=== PATIENT | female | born 1960 | race Caucasian/White ===

== ENCOUNTER → 2019-01-14 | Outpatient (CLI) | payer OTHER ==
[~2019-01-14] MED LIST: FAMO20 PO; LEVSOD75 PO; LORA.5 PO; METO50 PO; Prinivil10 MG PO; ROXICODONE5 MG PO
[2019-01-15 15:06] LABS: HPV 16 Negative (Negative); HPV 18 Negative (Negative); HPV OTHER HR TYPES Negative (Negative)
== END | disposition home or self-care (01) ==
LOC: LAB 11:29 → LAB SHORT 11:29
PROVIDERS: Nurse Practitioner Family
DX: Z01.411 Encounter for gynecological examination (general) (routine) with abnormal findings (principal)
CPT/HCPCS: 87624; G0145

== ENCOUNTER 2019-05-07 07:30 | Day surgery (SDC) | payer OTHER | END 2019-05-07 22:49 | disposition home or self-care (01) | LOC: WOUND 07:30 | DX: L97.822 Non-pressure chronic ulcer of other part of left lower leg with fat layer exposed (principal); I73.9 Peripheral vascular disease, unspecified; I87.2 Venous insufficiency (chronic) (peripheral); I10 Essential (primary) hypertension; Z87.891 Personal history of nicotine dependence | CPT/HCPCS: G0463 ==

== ENCOUNTER 2019-05-14 13:07 | Day surgery (SDC) | payer OTHER | END 2019-05-14 22:39 | disposition home or self-care (01) | LOC: WOUND 13:07 | DX: L97.822 Non-pressure chronic ulcer of other part of left lower leg with fat layer exposed (principal); I87.2 Venous insufficiency (chronic) (peripheral); I10 Essential (primary) hypertension; I73.9 Peripheral vascular disease, unspecified | CPT/HCPCS: 87071; 87075; 87205 ==

== ENCOUNTER 2019-05-21 00:23 | Day surgery (SDC) | payer OTHER | END 2019-05-21 23:03 | disposition home or self-care (01) | LOC: WOUND 00:23 | DX: L97.825 Non-pressure chronic ulcer of other part of left lower leg with muscle involvement without evidence of necrosis (principal); I87.2 Venous insufficiency (chronic) (peripheral); L98.9 Disorder of the skin and subcutaneous tissue, unspecified; R23.4 Changes in skin texture; I10 Essential (primary) hypertension | CPT/HCPCS: 11104; 11105; 87070; 87071; 87075; 87205; 88305; 88312 ==

== ENCOUNTER 2019-05-28 00:46 | Day surgery (SDC) | payer OTHER | END 2019-05-28 22:53 | disposition home or self-care (01) | LOC: WOUND 00:46 | DX: L97.828 Non-pressure chronic ulcer of other part of left lower leg with other specified severity (principal); I87.2 Venous insufficiency (chronic) (peripheral); R23.4 Changes in skin texture; L98.9 Disorder of the skin and subcutaneous tissue, unspecified; I10 Essential (primary) hypertension | CPT/HCPCS: G0463 ==

== ENCOUNTER 2019-06-04 12:57 | Day surgery (SDC) | payer OTHER | END 2019-06-04 22:39 | disposition home or self-care (01) | LOC: WOUND 12:57 | DX: L97.822 Non-pressure chronic ulcer of other part of left lower leg with fat layer exposed (principal); I87.2 Venous insufficiency (chronic) (peripheral); L98.9 Disorder of the skin and subcutaneous tissue, unspecified; I10 Essential (primary) hypertension ==

== ENCOUNTER 2019-06-11 00:26 | Day surgery (SDC) | payer OTHER | END 2019-06-11 23:01 | disposition home or self-care (01) | LOC: WOUND 00:26 | DX: L97.822 Non-pressure chronic ulcer of other part of left lower leg with fat layer exposed (principal); I87.2 Venous insufficiency (chronic) (peripheral); R23.4 Changes in skin texture; L98.9 Disorder of the skin and subcutaneous tissue, unspecified; I10 Essential (primary) hypertension ==

== ENCOUNTER 2019-06-19 00:07 | Day surgery (SDC) | payer OTHER | END 2019-06-19 23:13 | disposition home or self-care (01) | LOC: WOUND 00:07 | DX: L97.822 Non-pressure chronic ulcer of other part of left lower leg with fat layer exposed (principal); I87.2 Venous insufficiency (chronic) (peripheral); L97.825 Non-pressure chronic ulcer of other part of left lower leg with muscle involvement without evidence of necrosis ==

== ENCOUNTER 2019-06-25 13:46 | Day surgery (SDC) | payer OTHER | END 2019-06-25 23:00 | disposition home or self-care (01) | LOC: WOUND 13:46 | DX: L97.822 Non-pressure chronic ulcer of other part of left lower leg with fat layer exposed (principal); I87.2 Venous insufficiency (chronic) (peripheral); R23.4 Changes in skin texture; L98.9 Disorder of the skin and subcutaneous tissue, unspecified; I10 Essential (primary) hypertension ==

== ENCOUNTER 2019-07-02 00:14 | Day surgery (SDC) | payer OTHER | END 2019-07-02 22:46 | disposition home or self-care (01) | LOC: WOUND 00:14 | DX: I96 Gangrene, not elsewhere classified (principal); L97.822 Non-pressure chronic ulcer of other part of left lower leg with fat layer exposed; I87.2 Venous insufficiency (chronic) (peripheral); E03.9 Hypothyroidism, unspecified; E78.5 Hyperlipidemia, unspecified; D64.9 Anemia, unspecified; K76.0 Fatty (change of) liver, not elsewhere classified; I10 Essential (primary) hypertension; F41.9 Anxiety disorder, unspecified; Z85.21 Personal history of malignant neoplasm of larynx; Z92.3 Personal history of irradiation; Z79.899 Other long term (current) drug therapy ==

== ENCOUNTER 2019-07-09 00:25 | Day surgery (SDC) | payer OTHER | END 2019-07-09 22:36 | disposition home or self-care (01) | LOC: WOUND 00:25 | DX: L97.822 Non-pressure chronic ulcer of other part of left lower leg with fat layer exposed (principal); I87.2 Venous insufficiency (chronic) (peripheral); E03.9 Hypothyroidism, unspecified; L97.825 Non-pressure chronic ulcer of other part of left lower leg with muscle involvement without evidence of necrosis; L98.9 Disorder of the skin and subcutaneous tissue, unspecified; E78.5 Hyperlipidemia, unspecified; Z79.899 Other long term (current) drug therapy ==

== ENCOUNTER 2019-07-16 00:13 | Day surgery (SDC) | payer OTHER | END 2019-07-16 22:41 | disposition home or self-care (01) | LOC: WOUND 00:13 | DX: L97.822 Non-pressure chronic ulcer of other part of left lower leg with fat layer exposed (principal); I87.2 Venous insufficiency (chronic) (peripheral); L97.825 Non-pressure chronic ulcer of other part of left lower leg with muscle involvement without evidence of necrosis; E78.5 Hyperlipidemia, unspecified; E03.9 Hypothyroidism, unspecified; Z79.899 Other long term (current) drug therapy ==

== ENCOUNTER 2019-07-30 13:00 | Day surgery (SDC) | payer OTHER | END 2019-07-30 23:48 | disposition home or self-care (01) | LOC: WOUND 13:00 | DX: L97.822 Non-pressure chronic ulcer of other part of left lower leg with fat layer exposed (principal); I87.2 Venous insufficiency (chronic) (peripheral); E03.9 Hypothyroidism, unspecified; L98.9 Disorder of the skin and subcutaneous tissue, unspecified; L97.825 Non-pressure chronic ulcer of other part of left lower leg with muscle involvement without evidence of necrosis; E78.5 Hyperlipidemia, unspecified; Z79.899 Other long term (current) drug therapy ==

== ENCOUNTER 2019-08-06 12:55 | Day surgery (SDC) | payer OTHER | END 2019-08-06 22:47 | disposition home or self-care (01) | LOC: WOUND 12:55 | DX: L97.822 Non-pressure chronic ulcer of other part of left lower leg with fat layer exposed (principal); I87.2 Venous insufficiency (chronic) (peripheral); L98.9 Disorder of the skin and subcutaneous tissue, unspecified; Z79.899 Other long term (current) drug therapy ==

== ENCOUNTER 2019-08-12 10:52 | Day surgery (SDC) | payer OTHER | END 2019-08-12 22:46 | disposition home or self-care (01) | LOC: WOUND 10:52 | DX: L97.822 Non-pressure chronic ulcer of other part of left lower leg with fat layer exposed (principal); I87.2 Venous insufficiency (chronic) (peripheral); E78.5 Hyperlipidemia, unspecified; E03.9 Hypothyroidism, unspecified; Z79.899 Other long term (current) drug therapy ==

== ENCOUNTER 2019-08-26 11:09 | Day surgery (SDC) | payer OTHER | END 2019-08-26 22:35 | disposition home or self-care (01) | LOC: WOUND 11:09 | DX: L97.821 Non-pressure chronic ulcer of other part of left lower leg limited to breakdown of skin (principal); I87.2 Venous insufficiency (chronic) (peripheral); L98.9 Disorder of the skin and subcutaneous tissue, unspecified; I10 Essential (primary) hypertension; E03.9 Hypothyroidism, unspecified; D64.9 Anemia, unspecified; E78.5 Hyperlipidemia, unspecified; F41.8 Other specified anxiety disorders; Z79.899 Other long term (current) drug therapy; G89.4 Chronic pain syndrome | CPT/HCPCS: G0463 ==

== ENCOUNTER → 2022-03-21 | Outpatient (CLI) | payer OTHER ==
[2022-03-21 12:01] LABS: Source, Urine Clean Catch
[2022-03-21 12:56] LABS: Appearance, Urine Clear (Clear); Bilirubin, Urine Neg (Neg); Blood, Urine Neg (Neg); Glucose Qualitative, Urine Neg (Neg); Ketones, Urine Neg (Neg); Leukocyte Esterase, Urine Neg (Neg); Nitrite, Urine Neg (Neg); Protein, Urine Neg (Neg); Urobilinogen, Urine NORM (Normal); pH, Urine 6.5 (5.0-8.0)
[2022-03-21 13:13] LABS: Color, Urine Pale Yellow (P-Yellow)
== END | disposition home or self-care (01) ==
LOC: LAB SHORT 12:00 → LAB 12:00
PROVIDERS: Physician Assistant
DX: M05.79 Rheumatoid arthritis with rheumatoid factor of multiple sites without organ or systems involvement (principal); Z92.25 Personal history of immunosuppression therapy; Z79.899 Other long term (current) drug therapy
CPT/HCPCS: 81003

== ENCOUNTER 2024-04-15 05:16 | Inpatient (IN) | payer OTHER ==
[~2024-04-15] VITALS: Ht 167.6 cm; Wt 77.0 kg
[~2024-04-15 05:16] MED LIST changes: +LEVSOD112 PO; -LEVSOD75 PO
[2024-04-15] MEDS ORDERED: LORazepam 2 MG/ML 1ML Injection ONE (05:57)
[2024-04-15 06:04] LABS: BASOPHILS ABSOLUTE AUTO 0.05 K/mm3 (0.00-0.23); BASOPHILS PERCENT AUTO 0 % (0-2); EOSINOPHILS ABSOLUTE AUTO 0.01 K/mm3 (0.00-0.68); EOSINOPHILS PERCENT AUTO 0 % (0-6); Hematocrit 38.6 % (33.0-51.0); Hemoglobin 13.5 g/dL (11.5-16.0); IMMATURE GRAN ABSOLUTE AUTO 0.04 K/mm3 (0.00-0.10); IMMATURE GRAN PERCENT AUTO 0 % (0-1); LYMPHOCYTES ABSOLUTE AUTO 0.58 K/mm3 (0.84-5.20); LYMPHOCYTES PERCENT AUTO 5 % (21-46); MONOCYTES ABSOLUTE AUTO 0.83 K/mm3 (0.16-1.47); MONOCYTES PERCENT AUTO 7 % (4-13); Mean Corpuscular Volume 89 fL (80-100); Mean Platelet Volume 8.7 fL (9.1-12.4); NEUTROPHILS ABSOLUTE AUTO 11.18 K/mm3 (1.96-9.15); NEUTROPHILS PERCENT AUTO 88 % (41-73); Platelet Count 352 K/mm3 (150-400); RDW Coefficient Variation 13.1 % (11.7-14.2); RDW Standard Deviation 42.1 fL (35.1-46.3); Red Blood Cell Count 4.35 M/mm3 (3.80-5.20); White Blood Cell Count 12.69 K/mm3 (4.00-11.30)
[2024-04-15] MEDS ORDERED: levETIRAcetam 3,000 MG in NS 100 ML IV ONE (06:05)
[2024-04-15 06:26] LABS: Source, Urine Voided
[2024-04-15 06:32] LABS: Appearance, Urine Hazy (Clear); Bilirubin, Urine Neg (Neg); Blood, Urine Neg (Neg); Color, Urine Yellow (P-Yellow); Glucose Qualitative, Urine Neg (Neg); Ketones, Urine Neg (Neg); Leukocyte Esterase, Urine Neg (Neg); Nitrite, Urine Neg (Neg); Protein, Urine 2+ (Neg); Urobilinogen, Urine NORM (Normal)
[2024-04-15 06:35] LABS: Base Excess Venous -11.9 mmol/L; Bicarbonate Venous 16.2 mmol/L (24.0-30.0); PCO2 Venous 31.6 mmHg (38-42); pH Blood Venous 7.28 (7.34-7.37)
[2024-04-15 06:40] LABS: Alanine Aminotransfer (ALT/SGP 21 U/L (12-78); Albumin/Globulin Ratio 0.9 (0.8-1.8); Alk Phos 123 U/L (50-136); Anion Gap 17 mmol/L (3-11); Aspartate Aminotrans (AST/SGOT 23 U/L (12-37); Bilirubin, Total 0.5 mg/dL (0.1-1.0); Blood Urea Nitrogen 10 mg/dL (8-24); Bun/Creatinine Ratio 13.1 (12.0-20.0); CO2, Blood 20 mmol/L (21-32); Chloride, Blood 99 mmol/L (98-108); Creatinine, Blood 0.76 mg/dL (0.40-1.00); Ethanol (Alcohol), Blood, Med <3 mg/dL; Free Thyroxine 0.98 ng/dL (0.70-1.60); Globulin, Blood 4.4 g/dL (2.2-4.0); Glomerular Filtration Rate 89 (60-); Glucose, Blood 176 mg/dL (70-99); Magnesium, Blood 1.9 mg/dL (1.6-2.4); Potassium, Blood 4.2 mmol/L (3.5-5.5); Sodium, Blood 132 mmol/L (136-145); Total Protein, Blood 8.4 g/dL (6.4-8.2); Triiodothyronine, Free 1.94 pg/mL (2.18-3.98)
[2024-04-15 06:41] LABS: Amorphous Light (0-Heavy); Bacteria Few /hpf; Red Blood Cells, Urine 0-2 /hpf (0-2); Squamous Epithelial Cells Few /hpf (Few); White Blood Cells, Urine 0-2 /hpf (0-5)
[2024-04-15 06:58] LABS: U Amphetamine Screen Not Detected; U Barbituate Screen Not Detected; U Benzodiazapine Screen Not Detected; U Buprenorphine Screen Not Detected; U Cannabinoids Screen Not Detected; U Cocaine Screen Not Detected; U Methadone Screen Not Detected; U Methamphetamine Screen Not Detected; U Opiates Screen Not Detected; U Oxycodone Screen Not Detected; U Phencyclidine Screen Not Detected
[2024-04-15] MEDS ORDERED: Lactulose 20 GM/30 ML UDC PR ONE (07:05)
[2024-04-15] MEDS ORDERED: NS 1,000 ML IV SCH (07:20)
[2024-04-15] MEDS ORDERED: Lactulose 20 GM/30 ML UDC PO ONE (08:45)
[2024-04-15 09:32] LABS: Base Excess Venous -0.7 mmol/L; Bicarbonate Venous 23.8 mmol/L (24.0-30.0); PCO2 Venous 41.6 mmHg (38-42); pH Blood Venous 7.38 (7.34-7.37)
[2024-04-15] MEDS ORDERED: Ketorolac Tromethamine 30mg Vial IV ONE ×2 (09:45→20:05)
[2024-04-15] MEDS ORDERED: Acetaminophen 325 MG TABLET PO PRN (11:50)
[2024-04-15] MEDS ORDERED: Lactulose 20 GM/30 ML UDC PO SCH (12:00)
[2024-04-15 13:14] VITALS: BP 111/85
[2024-04-15] MEDS ORDERED: Ondansetron 4 MG SoluTab SL PRN (13:45)
[2024-04-15] MEDS ORDERED: LOSA25 PO (15:46)
[2024-04-15] MEDS ORDERED: METTREX2.5 PO (15:46)
[2024-04-15] MEDS ORDERED: Crestor40 MG PO (15:47)
[2024-04-15] MEDS ORDERED: HYDSUL200 PO (15:48)
[2024-04-15] MEDS ORDERED: FOLI1 PO (15:49)
[2024-04-15] MEDS ORDERED: ZINC15 PO (15:49)
[2024-04-15] MEDS ORDERED: ASCO500 PO (15:50)
[2024-04-15] MEDS ORDERED: ASPI81CH PO (15:50)
[2024-04-15] MEDS ORDERED: Garlic500 MG PO (15:51)
[2024-04-15] MEDS ORDERED: VITAMIN D5000 UNIT PO (15:51)
[2024-04-15] MEDS ORDERED: levETIRAcetam 500 MG in NS 100 ML IV SCH (18:00)
[2024-04-15] MEDS ORDERED: Levothyroxine Sodium 100 MCG Vial IV ONE (18:00)
[2024-04-15] MEDS ORDERED: Hydrocortisone Sod Succinate 100 MG Vial IV SCH (18:00)
[2024-04-15] MEDS ORDERED: NS 250 ML IV PRN (18:05)
[2024-04-15] MEDS ORDERED: Folic Acid 1 MG in NS 50 ML IV SCH (18:30)
[2024-04-15] MEDS ORDERED: Ondansetron HCl 2 MG / ML 2ML Vial IV PRN (20:05)
[2024-04-15 20:44] VITALS: BP 149/83
--- NOTE | 2024-04-15 21:58 | NUR ---
PT C/O N/V AND CHE. (DID NOT RATE ON NUMBER SCALE, PT LAYING WITH WASHCLOTH ON FOREHEAD, FACE SCALE ENTERED TO EMAR.) PT'S DAUGHTER GHULAM AND PT'S BY THE BEDSIDE, HIGHLY CONCERNED OF PT'S CHE AND PAIN. THIS INFORMATION SYSTEMS MANAGER CALLED PET TECHNOLOGIST HOSPITALIST RANDI. NEW ORDERS: - D/C ZOFRAN PO. -NEW ORDER ZOFRAN IV 4MG Q6HRS PRN -NEW ORDER TORADOL IV 30MG ONCE. NO OTHER ORDERS AT THAT TIME. ENTERED INTO MED RECORDS BY THIS INFORMATION SYSTEMS MANAGER. ADMINISTERED ORDERED (SEE EMAR.) PT'S DAUGHTER ASKING FOR MORE EFFECTIVE PAIN MED, AND WOULD LIKE THE APAP D/C'D. PT REPORTS TORADOL NOT EFFECTIVE FOR CHE/PAIN. SEE NEXT NOTE.
[2024-04-15] MEDS ORDERED: Droperidol 5 mg/2 ml Vial IV ONE (22:25)
[2024-04-15] MEDS ORDERED: DiphenhydrAMINE HCl 50 MG/ML 1ML Vial IV ONE (22:25)
--- NOTE | 2024-04-15 22:26 | NUR ---
PT C/O CHE, TORADOL 30MG IV ONCE NOT EFFECTIVE PER PT REPORT. THIS LANDSCAPE HORTICULTURE INSTRUCTOR CALLED ON-CALL HOSPITALIST RANDI. NEW ORDERS: - INAPSINE 1.25MG IV ONCE, AND - BENADRYL 25MG IV ONCE. ENTERED TO PT MED RECORD BY THIS LANDSCAPE HORTICULTURE INSTRUCTOR, (SEE EMAR).
--- NOTE | 2024-04-16 01:48 | NUR ---
NEW ORDER FOR PEPCID PO 20MG BID PER , ON-CALL HOSPITALIST. ORDER ENTERED TO PT'S MEDICAL RECORD/UiTV BY THIS CORK SLABS SAWYER (SEE EMAR.) AT , PT REQUESTED "ACID PILL, OVER THE COUNTER", AND REPORTED SHE TAKES BID AT HOME. NO ADDITIONAL NEW ORDERS AT THIS TIME.
[2024-04-16 02:29] VITALS: BP 133/74
--- NOTE | 2024-04-16 04:04 | NUR ---
SHIFT SUMMARY @HS PT'S FAMILY GATHERED BY THE BEDSIDE. PER PT'S DAUGHTER GHULAM, PT IS VERY CONFUSED. DAUGHTER ADVOCATING FOR THE PT. PT C/O CHE, REFUSED TYLENOL PO PRN, D/T LIVER TOXICITY. THIS LOOM CLEANER CALLED ON-CALL HOSPITALIST. TORADOL IV 30MG ONE-TIME DOSE ORDERED&ADMINISTERED, BUT NOT EFFECTIVE PER PT REPORT. (SEE PREVIOUS NOTE). THIS LOOM CLEANER CALLED TO ON-CALL HOSPITALIST: BENADRYL AND INAPSIN IV ORDERED ONE-TIME DOSE. PER PT DAUGHTER, CHE SUBSIDED. PT AND DAUGHTER DID NOT WISH TO HAVE BENADRYL&INAPSIN ORDERED. PT REFUSED HS 1800 THIAMINE, D/T "KEEPING HER AWAKE". AT HS, 1800 FOLIC ACID INFUSED ORDERED. PT C/O "ACID", AND REQUESTED MEDICATION FOR IT. THIS LOOM CLEANER CALLED THE ON-CALL HOSPITALIST. PEPCID 20MG ORDERED BID PO. PT DID NOT REQUEST A DOSE DURING THIS SHIFT. PT'S DAUGHTER CALLED THIS LOOM CLEANER DURING EARLY AM HRS. DAUGHTER ASKED IF STAFF WOULD ALLOW THE PT TO SLEEP MUCH POSSIBLE W/O INTERRUPTIONS. DAUGHTER WENT HOME TO GET SOME REST. NO ACUTE EVENTS DURING THIS SHIFT. BED AT THE LOWEST POSITION, CALL LIGHT WITHIN REACH. PT IS ABLE TO MAKE HER NEEDS KNOWN.
[2024-04-16 05:28] LABS: BASOPHILS ABSOLUTE AUTO 0.01 K/mm3 (0.00-0.23); BASOPHILS PERCENT AUTO 0 % (0-2); EOSINOPHILS PERCENT AUTO 0 % (0-6); Hemoglobin 11.6 g/dL (11.5-16.0); IMMATURE GRAN ABSOLUTE AUTO 0.04 K/mm3 (0.00-0.10); IMMATURE GRAN PERCENT AUTO 1 % (0-1); LYMPHOCYTES ABSOLUTE AUTO 0.52 K/mm3 (0.84-5.20); LYMPHOCYTES PERCENT AUTO 7 % (21-46); MONOCYTES ABSOLUTE AUTO 0.23 K/mm3 (0.16-1.47); MONOCYTES PERCENT AUTO 3 % (4-13); Mean Corpuscular HGB 30.7 pg (26.0-34.0); Mean Corpuscular HGB Conc 34.1 g/dL (31.5-36.5); Mean Corpuscular Volume 90 fL (80-100); Mean Platelet Volume 8.5 fL (9.1-12.4); NEUTROPHILS ABSOLUTE AUTO 7.21 K/mm3 (1.96-9.15); NEUTROPHILS PERCENT AUTO 90 % (41-73); Platelet Count 301 K/mm3 (150-400); RDW Coefficient Variation 13.2 % (11.7-14.2); Red Blood Cell Count 3.78 M/mm3 (3.80-5.20); White Blood Cell Count 8.01 K/mm3 (4.00-11.30)
[2024-04-16 05:55] LABS: Albumin, Blood 3.3 g/dL (3.4-5.0); Albumin/Globulin Ratio 0.9 (0.8-1.8); Bilirubin, Total 0.4 mg/dL (0.1-1.0); Calcium, Blood 9.1 mg/dL (8.5-10.1); Creatinine, Blood 0.73 mg/dL (0.40-1.00); Globulin, Blood 3.8 g/dL (2.2-4.0); Potassium, Blood 4.1 mmol/L (3.5-5.5); Total Protein, Blood 7.1 g/dL (6.4-8.2)
[2024-04-16] MEDS ORDERED: Levothyroxine Sodium 0.112 MG Tab PO SCH (06:00)
[2024-04-16 08:10] VITALS: BP 137/69
[2024-04-16] MEDS ORDERED: Heparin Sodium,Porcine 5,000 UNIT/0.5 ML SDV SC SCH (09:00)
[2024-04-16] MEDS ORDERED: Famotidine 20 MG Tab PO SCH (09:00)
--- NOTE | 2024-04-16 15:13 | NUR ---
MD NOTIFY SPOKE WITH DR. HOFFMAN REGARDING HAVING DIFFICULTY OBTAINING IV ACCESS. REQUESTED IV MEDICATIONS BE SWITCHED TO ORAL. ALSO INFORMED HER THAT PATIENT'S FAMILY IS AT BEDSIDE, INCLUDING , DAUGHTER, AND FAMILY FRIEND WHO ALL ARE REQUESTING AN UPDATE. DR. HOFFMAN STATED SHE WAS AT THE CLINIC AND WILL MAKE ROUNDS AGAIN TOMORROW MORNING TO UPDATE. AT BEDSIDE THIS AM DURING DR. HOFFMAN'S VISIT. WILL INFORM FAMILY. DR. HOFFMAN STATED WOULD PLACE ORAL MEDICATION ORDERS AND DC IV ORDERS.
--- NOTE | 2024-04-16 15:36 | NUR ---
MD CONTACT SPOKE WITH DR. HOFFMAN. PATIENT'S DAUGHTER ADAMANENT THAT KEPPRA BE DISCONTINUED AND TO SPEAK WITH HOSPITALIST. DR. HOFFMAN IN CLINIC AND STATED SHE WOULD CALL WHEN SHE WAS FINISHED THERE.
[2024-04-16] MEDS ORDERED: Thiamine HCl 100 MG Tab PO SCH (16:00)
[2024-04-16 16:50] VITALS: BP 146/82
[2024-04-16] MEDS ORDERED: LevETIRAcetam 500 MG Tab PO SCH (17:00)
--- NOTE | 2024-04-16 17:52 | NUR ---
DISCHARGE NOTE PATIENT A/OX4 THIS SHIFT, ABLE TO ANSWER QUESTIONS APPORPRIATELY, HOWEVER CONFUSED INTERMITTENTLY AND FORGETFUL NEEDS EDUCATION REGARDING PLAN OF CARE, MEDICATION, AND DIAGNOSES AT EVERY INTERACTION WITH NURSING STAFF. PATIENT VERY ANXIOUS AND TEARFUL THIS SHIFT, STATING SHE IS "EMOTIONAL" TODAY. PROVIDED WITH THERAPEUTIC LISTENING AND ENCOURAGED THAT PATIENT'S MENTATION IS IMPROVING PER PREVIOUS NURSE REPORT. PATIENT CONTINUES WITH ANXIETY WHICH IS HIGHTENED WITH DAUGHTER'S PRESENCE. DAUGHTER, AT BEDSIDE THIS AFTERNOON, ADAMENT ABOUT SPEAKING WITH HOSPITALIST. HOSPITALIST INFORMED AND STATED SHE WOULD CALL HER. DAUGHTER REFUSING THAT HER MOTHER TAKES KEPPRA SHE STATES IT CAUSES "HIVES, HALLUCINATIONS, AND CONFUSION". DAUGHTER NOT RECEPTIVE TO EDUCATION, THOUGH ATTEMPTED MULTIPLE TIMES. KEPPRA HELD THIS AFTERNOON. AT BEDSIDE ALL SHIFT, PLEASANT AND COOPERATIVE WITH STAFF. THIS AM PATIENT COMPLAINING OF HEADACHE AND NAUSEA, GIVEN TYLENOL AND ZOFRAN PER OCT. CIWA SCORE OF 7 TODAY. PIV TO LEFT AC LEAKING AND REMOVED. POWERGLIDE PLACED TO KEVAN THIS EVENING. PATIENT STATES SHE FEELS "WRONG" AND "OFF" THROUGHOUT THE SHIFT. VITAL SIGNS STABLE, PATIENT PROVIDED EDUCATION REGARDING EXPECTATIONS WITH THE SPEED OF HEALTH IMPROVEMENT AND SYMPTOM MANAGEMENT. PATIENT RECEPTIVE, HOWEVER D/T ANXIETY ADN FORGETFULLNESS, NEEDS RE-EDUCATION FREQUENTLY. DENIES NAUSEA THIS AFTERNOON. ALL SCHEDULED IV MEDICATIONS SWITCHED TO ORAL MEDICATIONS. DISCUSSED DNR STATUS WITH HOSPITALIST, PATIENT, AND PATIENT'S THIS AM REGARDING PATIENT'S PERSONAL WRIST BANDS STATING "RESUSCITATE" AND HOSPITALIST STATED SHE HAD THE CONVERSATION REGARDING CODE STATUS EARLIER AND PATIENT IS TO BE DNR. HOWEVER WHEN ELECTRICAL DEVELOPMENT ENGINEER ATTEMPTED TO PLACE HOPSITAL DNR BRACELET ON PATEINT, SHE REFUSED. PATIENT STATED SHE WOULD LIKE TO BE RESUSCITATED AND PATIENT'S IS AT BEDSIDE IN AGREEMENT. AFTER DISCUSSING RESUSCITATION AND PROVIDING EDUCATION PATIENT STATED "I DON'T KNOW WHAT TO DO, WHAT DO OTHER PEOPLE DO?" INFORMED PATIENT THAT THIS IS HER DECISION TO MAKE AND TO THINK ABOUT BOTH OPTIONS THOUROUGHLY. EDUCATED PATIENT AND PATIENT'S TO DISCUSS FURTHER AND DECIDE, BUT FOR NOW PATIENT REMAINS A DNR WITH NO WRIST BAND IN PLACE DUE TO REFUSAL. PATIENT AND RECEPTIVE AND UNDERTSANDING, WILL COMMUNICATE WITH HOSPITALIST IN THE AM. CHARGE NURSE INFORMED, NO OTHER CONCERNS AT THIS TIME.
[2024-04-16 19:35] VITALS: BP 172/87
[2024-04-16 19:40] VITALS: BP 178/102
[2024-04-16] MEDS ORDERED: HydrALAZINE HCl 25 MG Tab PO PRN (20:10)
--- NOTE | 2024-04-17 03:19 | NUR ---
SHIFT SUMMARY PT A&O X3-4, CONFUSED. PT STATES"I'M CONFUSED." BP ELEVATED AT HS: MANUAL BP 178/102. P.72. PT C/O FLUSHED FACE. PT DENIES SOB, DIZZINESS, AND CHEST PAIN. NO COUGH NOTED. THIS HIDE PULLER CALLED ON-CALL HOSPITALIST NEW PRODUCT TRAINERPETER BAH FOR HYDRAZALINE PRN ADMINISTERED WITH HS MEDICATIONS. PT REFUSED HS LACTULOSE& THIAMINE. PT MADE DECISIONS HERSELF R/T HS MEDICATION ADMINISTRATION. THIS HIDE PULLER SPOKE WITH THE DAUGHTER GHULAM, AND SHE STATED SHE DID NOT WANT HER MOTHER TO TAKE THE KEPPRA. GHULAM ALSO REQUESTED IF NURSE COULD ONLY GIVE HALF TAB OF THE 500MG KEPPRA AFTER ADMINISTRATED DURING THIS SHIFT. THIS HIDE PULLER ENCOURAGED GHULAM TO STAY FOR THE PROVIDER'S ROUNDS AND SPEAK/REQUEST/DISCUSS MEDICATIONS WITH THE PROVIDER THIS MORNING. NO LOOSE STOOL OR BM DURING THIS SHIFT. FAMILY BY THE BEDSIDE AT HS. FAMILY WENT HOME FOR THE NIGHT. NO S/SX OF ETOH WITHDRAWALS DURING THIS SHIFT, PT ALSO DENIES ANY. SEE CIWA INTERVENTION. NO ACUTE EVENTS DURING THE NIGHT TIME. BED AT THE LOWEST POSITION, BED ALARM FOR SAFETY. CALL LIGHT WITHIN REACH. PT IS ABLE TO MAKE HER NEEDS KNOWN.
--- NOTE | 2024-04-17 03:43 | NUR ---
FOR THE PROVIDERS: PLEASE VERIFY PT'S CODE STATUS. PER DAYSHIFT NURSE HANDOFF REPORT, PT IS UNDECISIVE WITH DNR/LIMITED/FULL CODE OPTIONS. THIS NURSE NOTICED THAT PT HAS HER OWN RED COLOR WRISTBAND "RESUSCITATE." DURING ADMISSION PT OPTED TO HAVE DNR CODE STATUS.
[2024-04-17 05:00] VITALS: BP 146/91
[2024-04-17 05:10] LABS: BASOPHILS ABSOLUTE AUTO 0.05 K/mm3 (0.00-0.23); BASOPHILS PERCENT AUTO 1 % (0-2); EOSINOPHILS ABSOLUTE AUTO 0.04 K/mm3 (0.00-0.68); EOSINOPHILS PERCENT AUTO 1 % (0-6); Hematocrit 34.1 % (33.0-51.0); Hemoglobin 11.5 g/dL (11.5-16.0); IMMATURE GRAN ABSOLUTE AUTO 0.03 K/mm3 (0.00-0.10); IMMATURE GRAN PERCENT AUTO 0 % (0-1); LYMPHOCYTES ABSOLUTE AUTO 1.47 K/mm3 (0.84-5.20); LYMPHOCYTES PERCENT AUTO 18 % (21-46); MONOCYTES ABSOLUTE AUTO 0.67 K/mm3 (0.16-1.47); MONOCYTES PERCENT AUTO 8 % (4-13); Mean Corpuscular HGB 30.8 pg (26.0-34.0); Mean Corpuscular HGB Conc 33.7 g/dL (31.5-36.5); Mean Corpuscular Volume 91 fL (80-100); Mean Platelet Volume 8.6 fL (9.1-12.4); NEUTROPHILS ABSOLUTE AUTO 5.97 K/mm3 (1.96-9.15); NEUTROPHILS PERCENT AUTO 73 % (41-73); Platelet Count 321 K/mm3 (150-400); RDW Coefficient Variation 13.3 % (11.7-14.2); RDW Standard Deviation 44.1 fL (35.1-46.3); Red Blood Cell Count 3.73 M/mm3 (3.80-5.20); White Blood Cell Count 8.23 K/mm3 (4.00-11.30)
[2024-04-17 05:37] LABS: Albumin/Globulin Ratio 0.9 (0.8-1.8); Bilirubin, Total 0.3 mg/dL (0.1-1.0); Bun/Creatinine Ratio 18.3 (12.0-20.0); Creatinine, Blood 0.71 mg/dL (0.40-1.00); Globulin, Blood 3.5 g/dL (2.2-4.0); Potassium, Blood 3.7 mmol/L (3.5-5.5); Total Protein, Blood 6.5 g/dL (6.4-8.2)
[2024-04-17 07:20] VITALS: BP 157/88
[2024-04-17] MEDS ORDERED: Folic Acid 1 MG TAB PO SCH (09:00)
--- NOTE | 2024-04-17 19:23 | NUR ---
report received verified. pt did very well today, showed some confusion at times but had no problem following commands, plus pt states that she is confused, pt has been very emotional today. physical therapy worked with pt today and she did very well walking in pineda. has been assisting pt to bathroom pt having multiple bm from medication being given. pt call appropriatly, and able to make needs known
[2024-04-17 19:52] VITALS: BP 138/102
[2024-04-18 02:11] VITALS: BP 169/95
--- NOTE | 2024-04-18 05:17 | NUR ---
SHIFT SUMMARY 63 YR F ADMITTED ON 04/15/24. FULL CODE. NO ACUTE CHANGES THIS SHIFT. PT STATED THAT IT BOTHERS HER THAT SHE IS HAVING CONFUSION. SHE STATED "MY HEAD ISNT RIGHT". SHE IS VERY EMOTIONAL ABOUT IT. IN ROOM AT BEGINNING OF SHIFT AND DAUGHTER CAME LATER AND STAYED LATE INTO THE SHIFT. PT IS OBVIOUSLY VERY COMFORTABLE WITH HER FAMILY AT HER SIDE. SHE HAS HAD MULTIPLE BM'S WHILE TAKING LACTULOSE AND SHE IS HOPEFUL THAT HER AMMONIA LEVEL IS DOWN. SHE IS VERY PLEASANT AND COOPERATIVE WITH CARE. BED IN LOW POSITION AND CALL LIGHT IN REACH. WILL CONTINUE TO MONITOR.
[2024-04-18 08:11] VITALS: BP 192/105
[2024-04-18 08:51] LABS: BASOPHILS ABSOLUTE AUTO 0.05 K/mm3 (0.00-0.23); BASOPHILS PERCENT AUTO 1 % (0-2); EOSINOPHILS PERCENT AUTO 1 % (0-6); Hematocrit 41.3 % (33.0-51.0); Hemoglobin 14.4 g/dL (11.5-16.0); IMMATURE GRAN ABSOLUTE AUTO 0.04 K/mm3 (0.00-0.10); IMMATURE GRAN PERCENT AUTO 1 % (0-1); LYMPHOCYTES PERCENT AUTO 12 % (21-46); MONOCYTES ABSOLUTE AUTO 0.56 K/mm3 (0.16-1.47); MONOCYTES PERCENT AUTO 7 % (4-13); Mean Corpuscular HGB 31.6 pg (26.0-34.0); Mean Corpuscular HGB Conc 34.9 g/dL (31.5-36.5); Mean Corpuscular Volume 91 fL (80-100); Mean Platelet Volume 8.5 fL (9.1-12.4); NEUTROPHILS ABSOLUTE AUTO 6.82 K/mm3 (1.96-9.15); NEUTROPHILS PERCENT AUTO 80 % (41-73); Platelet Count 364 K/mm3 (150-400); RDW Coefficient Variation 13.3 % (11.7-14.2); RDW Standard Deviation 42.9 fL (35.1-46.3); Red Blood Cell Count 4.56 M/mm3 (3.80-5.20); White Blood Cell Count 8.57 K/mm3 (4.00-11.30)
[2024-04-18 09:10] LABS: Albumin, Blood 3.6 g/dL (3.4-5.0); Albumin/Globulin Ratio 0.9 (0.8-1.8); Bilirubin, Total 0.3 mg/dL (0.1-1.0); Bun/Creatinine Ratio 23.9 (12.0-20.0); Calcium, Blood 9.6 mg/dL (8.5-10.1); Creatinine, Blood 0.67 mg/dL (0.40-1.00); Globulin, Blood 4.2 g/dL (2.2-4.0); Potassium, Blood 3.6 mmol/L (3.5-5.5); Total Protein, Blood 7.8 g/dL (6.4-8.2)
[2024-04-18] MEDS ORDERED: Losartan Potassium 50 MG Tab PO STA (09:32)
[2024-04-18] MEDS ORDERED: HydrALAZINE HCl 20 MG / ML 1ML Vial IV ONE (10:05)
[2024-04-18 11:16] VITALS: BP 147/86
--- NOTE | 2024-04-18 11:44 | NUR ---
DAUGHTER MATT AT BEDSIDE, DEMANDED TO SEE DR MATA, PATIENT ADVOCATE. PATIENT ADVOCATE TALKING WITH FAMILY NOW, STAY CUTTER AND BRAD BRIGGS RN. DR MATA IN ROOM NOW ALSO. FAMILY WANTING TO DISCAHRGE PATIENT AND TAKE TO [facility] FOR CARE. STAT EKG NOW FOR HEART RATE 141, BP DECREASED FROM HYDRALAZINE, PATIENT LESS INTERACTIVE NOW.
[2024-04-18 13:47] VITALS: BP 159/90
[2024-04-18] MEDS ORDERED: Metoprolol Tartrate 1 MG/ML 5 ML VIAL IV PRN (15:00)
[2024-04-18] MEDS ORDERED: Metoprolol Tartrate 1 MG/ML 5 ML VIAL IV ONE (15:00)
[2024-04-18 15:16] VITALS: BP 172/96
[2024-04-18] MEDS ORDERED: LORazepam 2 MG/ML 1ML Injection IV STA (16:01)
[2024-04-18] MEDS ORDERED: LORazepam 2 MG/ML 1ML Injection IV PRN (17:00)
--- NOTE | 2024-04-18 18:36 | NUR ---
MENTATION CHANGES ADVANCED TO PATIENT NOT TALKING, FAMILY AT BEDSIDE, PATIENT TO MRI NOW WITH ATIVAN FOR CLAUSTROPHOBIA, MRI RESULTS TO BE CALLED TO DR MATA, VSS, AMMONIA 17, HELD ALL MEDICATIONS, PATIENT REFUSED TO TAKE MEDICATIONS, HEART RATE INCREASED TO 140S, TELE ON TACHCARDIA, MEDICATED WITH HYDRALAZIONE AND METOPROLOL IV, HEART RATE NOW 100, BP 172/96. NURSING DEAN, PATIENT ADVOCATE AND SIMULATION ENGINEER AWARE OF FAMILY DEMANDS FOR POSSIBLE DISCHARGE TO [facility]. SEIZURE PADS IN PLACE, NO SEIZURE ACTIVITY. DISCAHRGE BEING HELD TONDR ADOLFO PANDEY TO ADDRESS IN AM, BED ALARM ON
[2024-04-18] MEDS ORDERED: LACOSAMIDE IV SCH (20:00)
[2024-04-18] MEDS ORDERED: NS IV SCH (20:00)
[2024-04-18] MEDS ORDERED: Lacosamide 200 MG/20 ML 20ML Vial IV SCH (20:00)
[2024-04-18 20:45] VITALS: BP 159/99
[2024-04-19] VITALS (10 sets, daily range): BP systolic 138–227; BP diastolic 77–136
[2024-04-19 07:27] LABS: C-Reactive Protein, High Sens. 4.24 mg/dL (0.000-3.000); Free Thyroxine 1.25 ng/dL (0.70-1.60); Thyroid Stimulating Hormone 20.6 uIU/mL (0.360-4.800)
[2024-04-19] MEDS ORDERED: Losartan Potassium 25 MG Tab PO ONE ×3 (09:05→14:50)
--- NOTE | 2024-04-19 10:49 | NUR ---
PHYSICIAN CONTACT-HTN DR. MATA NOTIFIED OF PERSISTANT HTN. AFTER ONE TIME DOSE OF LOSARTAN PT BP REMAINS VERY HIGH AT 196/114. ORDER RECIEVED FOR ANOTHER ONE TIME DOSE OF LOSARTAN 25MG PO. DR. MATA ALSO NOTIFIED THAT PT IS MORE FLAT/WITHDRAWL NOW THAN SHE WAS EARLIER DURING HIS VISIT. PT WILL NOT MAKE EYE CONTACT OR ANSWER QUESTIONS. BUT WILL FOLLOW LITTLE DIRECTIONS, LIKE UNCROSSING HER LEGS FOR A BP.
[2024-04-19] MEDS ORDERED: Metoprolol Tartrate 1 MG/ML 5 ML VIAL IV STA (13:47)
--- NOTE | 2024-04-19 14:50 | NUR ---
PHYSICIAN CONTACT-HTN PT CONTINUES TO BE HYPERTENSIVE. HR INCREASED TO 140S AFTER AMBULATING TO THE BATHROOM AND DID NOT COME DOWN AFTER RESTING. STAT METOPROLOL GIVEN. BP RECHECKED AT 199/123, HR DECREASED TO 110S. SINUS TACH PER TELE. DR. MATA NOTIFIED. ORDER FOR ONE TIME DOSE OF LOSARTAN 25MG PO OBTAINED.
[2024-04-19] MEDS ORDERED: LORazepam 2 MG/ML 1ML Injection IM PRN (15:00)
[2024-04-19] MEDS ORDERED: HydrALAZINE HCl 20 MG / ML 1ML Vial IV PRN (15:00)
[2024-04-19] MEDS ORDERED: LORazepam 2 MG/ML 1ML Injection IV PRN ×2 (15:05)
[2024-04-19] MEDS ORDERED: Thiamine HCl 100 MG in NS 50 ML IV SCH (16:00)
[2024-04-19] MEDS ORDERED: D5W-1/2NS KCl 20mEq 1,000 ML IV SCH (16:00)
[2024-04-19] MEDS ORDERED: Folic Acid 1 MG in NS 50 ML IV SCH (16:00)
--- NOTE | 2024-04-19 17:17 | NUR ---
SHIFT SUMMARY PT ALERT & ORIENTED THIS AM. SLOWLY DAY HAS GONE ON, PT BECAME MORE FLAT & WITHDRAWL/NON-VERBAL. WAXING AND WANING IN SEVERITY. MD AWARE OF ALL THIS. BP REMAINED ELEVATED T/O DAY DISPITE SEVERAL PHARALOGICAL INTERVENTIONS. SEE EMAR FOR ADMIN TIMES OF METOPROLOL AND LOSARTAN. DR. MATA ORDERED CIWAS THIS AFTERNOON. FIRST CIWA COMPLETED WITH A SCORE OF 9. PT MEDICATED WITH 1MG OF ATIVAN AND WITHIN 30 MINUTES BECAME MORE ORIENTED AND WAS TALKING AGAIN. PT CONTINUES TO BE ORIENTED EXCEPT FOR SOME FORGETFULNESS. AT BEDSIDE AND THANKFUL THAT ATIVAN SEEMS TO HAVE HELPED ORIENTATION. PT CONCERNED ABOUT TAKING IT AGAIN, STATING IT MADE HER FEEL "FUNNY" BUT UNABLE TO STATE WHAT THAT MEANT. BP IMPROVED AFTER LAST LOSARTAN DOSE AND ATIVAN DOSE TO 162/105. DR. MATA UPDATED WITH THESE RESULTS. PLANS TO TALK WITH FAMILY TOMORROW ABOUT HIS DISCUSSION WITH [facility], NO TRANSFER NEEDED AT THIS TIME ALCOHOL WITHDRAWL IS THOUGHT TO BE THE CAUSE OF DISORIENTATION/SEIZRES. HR INCREASE TO THE 140S ONCE TODAY WITH AMBLULATION TO THE BATHROOM, TREATED WITH METOPROLOL. PT AMBULATED TO THE BATHROOM A SECOND TIME TODAY ONCE TREATED WITH ATIVAN AND HR REMAINED IN THE 110S T/O EVENT. NO OTHER ACUTE CHANGES IN ASSESSMENT AT THIS TIME. VS REVIEWED. CALL LIGHT IN REACH. DENIES OTHER NEEDS AT THIS TIME.
[2024-04-19 20:09] LABS: ALPHA-2-MACROGLOBUL,FIBROMETER 146 mg/dL (131-293); ALT,FIBROMETER 16 U/L (5-40); AST,FIBROMETER 35 U/L (9-40); CIRRHOMETER PATIENT SCORE 0.01; FIBROMETER INTERPRETATION See Report; FIBROMETER PATIENT SCORE 0.28; FIBROMETER PLATELET COUNT 301 k/uL; FIBROMETER PROTHROMBIN INDEX 89 % (90-120); FIBROSIS METAVIR CLASSIFICAT F1[F1-F2]; GGT,FIBROMETER 26 U/L (7-33); INFLAMETER METAVIR CLASSIFICAT A0/A1; INFLAMETER PATIENT SCORE 0.17; UREA NITROGEN,SERUM,FIBROMETER 11 mg/dL (7-20)
[2024-04-20 03:16] VITALS: BP 145/88
[2024-04-20 05:46] LABS: Albumin, Blood 3.5 g/dL (3.4-5.0); Albumin/Globulin Ratio 0.9 (0.8-1.8); Bilirubin, Total 0.4 mg/dL (0.1-1.0); Bun/Creatinine Ratio 31.1 (12.0-20.0); Calcium, Blood 9.6 mg/dL (8.5-10.1); Creatinine, Blood 0.9 mg/dL (0.40-1.00); Potassium, Blood 3.6 mmol/L (3.5-5.5); Total Protein, Blood 7.5 g/dL (6.4-8.2)
[2024-04-20] MEDS ORDERED: NS 1,000 ML IV SCH (06:10)
[2024-04-20 07:35] VITALS: BP 185/109
[2024-04-20 08:30] VITALS: BP 160/95
[2024-04-20 10:17] VITALS: BP 130/74
--- NOTE | 2024-04-20 10:24 | NUR ---
TELE MONITOR CALLED TO INFORM OF PT HR BEING IN THE 140S AROUND 1015. VITALS RETAKEN, IV METOPROLOL ADMINISTERED. HR LOWERED TO 100 PER TELE MONITOR AFTER ADMIN AT 1020.
[2024-04-20 17:23] VITALS: BP 100/72
--- NOTE | 2024-04-20 17:59 | NUR ---
SHIFT SUMMARY PT IS ALERT, AND HER ORIENTATION VARIES. PT STARTED OFF ORIENTED X3-4, BUT TOWARDS THE END OF THE SHIFT APPEARED TO BE FORGETFUL AND CONFUSED REGARDING TEACHING GIVEN EARLIER IN THE SHIFT. PT FAMILY AT BEDSIDE. PT RECEIVED SCHEDULED AND PRN MEDICATIONS. PT REFUSED HEPARIN AND LACTULOSE. PT RECEIVED IV HYDRALIZINE AND METOPROLOL TO TREAT PRN HTN, AND HIGH HR. VITAL SIGNS RESOLVED AFTER ADMISSION, REMAINING VSS. PT AMBULATED TO THE BR WITH 1P ASSIST. PT IS IMPULSIVE AND ATTEMPTS TO EXIT THE BED. ALARM ENABLED. WHILE ASSISTING PT IN ROOM, BAG MACHINE SET UP OPERATOR OVERHEARD PT FAMILY MEMBER ADMITTING TO TEACHING PT HOW TO TURN OFF BED ALARM. PT TEACHING ADMINISTERED. NO ACUTE EVENTS AT THIS TIME, NO COMPLAINTS OF CP/PRESSURE OR SOB. FALL PRECAUTIONS IN PLACE. REPOSITIONED INDEPENDENTLY. CALL LIGHT IN REACH.
[2024-04-20] MEDS ORDERED: Losartan Potassium 25 MG Tab PO SCH (18:00)
[2024-04-20] MEDS ORDERED: NS KCl 20mEq 1,000 ML IV SCH (20:00)
[2024-04-20 20:27] VITALS: BP 105/76
[2024-04-21 06:16] LABS: Albumin, Blood 2.8 g/dL (3.4-5.0); Albumin/Globulin Ratio 0.9 (0.8-1.8); Bilirubin, Total 0.4 mg/dL (0.1-1.0); Bun/Creatinine Ratio 18.1 (12.0-20.0); Calcium, Blood 8.7 mg/dL (8.5-10.1); Creatinine, Blood 0.72 mg/dL (0.40-1.00); Total Protein, Blood 5.8 g/dL (6.4-8.2)
[2024-04-21 07:46] VITALS: BP 84/65
[2024-04-21 07:58] VITALS: BP 93/67
--- NOTE | 2024-04-21 08:08 | NUR ---
SHIFT SUMMARY PT IS A&OX2-3, SOMETIMES FORGETTING WHERE SHE IS. SHE IS PLEASANT AND COOPERATIVE WITH CARES. VSS ON RA. PER TELEMETRY, PT IS SR @ 77. DENIES PAIN. PT SLEPT WELL T/O NOC. TOLERATING A REGULAR DIET, POOR APPETITE. X1 ASSIST WITH FWW TO BR. PT VOIDING IN TOILET, HAS SOME URGENCY WITH INCONTINENCE, PULL-UP IN PLACE. LARYNGECTOMY TUBE IN PLACE, AND CARE MAINTAINED PER PT. SEIZURE PRECAUTIONS MAINTAINED, NO WITNESSED SEIZURE ACTIVITY. BED IN LOWEST POSITION, CALL LIGHT WITHIN REACH. PT IS IMPULSIVE AND DOES NOT USE HER CALL LIGHT, BED ALARM SET FOR PT'S SAFETY.
[2024-04-21 14:37] VITALS: BP 82/62
[2024-04-21] MEDS ORDERED: LACT10SY PO (15:23)
[2024-04-21] MEDS ORDERED: HYDRA25 PO (15:24)
--- NOTE | 2024-04-21 16:45 | NUR ---
PATIENT D/C'D TO HOME WITH . DC INSTRUCTIONS AND EDUCATION DISCUSSED WITH PATIENT AND COPY PROVIDED. PATIENT HAS FOLLOW UP APPT WITH PCP ON SUNDAY. PATIENT DENIES ANY FURTHER QUESTIONS OR CONCERNS.
== END 2024-04-21 16:38 | disposition home health service (06) | DRG 100 ==
LOC: ER 05:16 → MEDS 11:44
PROVIDERS: Emergency Medicine; Internal Medicine Endocrinology, Diabetes & Metabolism; Student in an Organized Health Care Education/Training Program; ADMIT Family Medicine
DX: G40.901 Epilepsy, unspecified, not intractable, with status epilepticus (principal); G93.41 Metabolic encephalopathy; F10.231 Alcohol dependence with withdrawal delirium; E72.20 Disorder of urea cycle metabolism, unspecified; E87.20 Acidosis, unspecified; Z66 Do not resuscitate; E06.3 Autoimmune thyroiditis; K21.9 Gastro-esophageal reflux disease without esophagitis; M06.9 Rheumatoid arthritis, unspecified; E78.5 Hyperlipidemia, unspecified; I10 Essential (primary) hypertension; Q16 Congenital malformations of ear causing impairment of hearing; Z85.118 Personal history of other malignant neoplasm of bronchus and lung; Z85.21 Personal history of malignant neoplasm of larynx; Z79.890 Hormone replacement therapy; Z79.899 Other long term (current) drug therapy; Z98.890 Other specified postprocedural states; Z92.3 Personal history of irradiation; Z92.21 Personal history of antineoplastic chemotherapy; Z87.891 Personal history of nicotine dependence; Z93.0 Tracheostomy status; Z90.02 Acquired absence of larynx
CPT/HCPCS: 36415; 70450; 70553; 71045; 74176; 80053; 80204; 80320; 81001; 82140; 82803; 82947; 82977; 83605; 83735; 83883; 84439; 84443; 84450; 84460; 84481; 84520; 85025; 85651; 86141; 93005; 93010; 96361; 96365; 96375; 97110; 97161; 97165; 97530; 97535; 99285-25; A9270; A9579; C1751; J0360; J1644; J1720; J1885; J1953; J2060; J2405; J3411; J3480; J7030; J7050